=== PATIENT | male | born 1970 | race Hispanic/Latino ===

== ENCOUNTER 2017-10-18 16:09 | Emergency (ER) | payer BC ==
[2017-10-18 17:29] VITALS: BP 129/72; PULSE 80; RESP 16; TEMP 98.1; O2SAT 97
[2017-10-18] MEDS ORDERED: Tmp-Smz 800 mg-160 mg DS Tab PO STA (18:01)
[2017-10-18] MEDS ORDERED: Bacitracin OINT 15GM TOP STA (18:03)
[2017-10-18] MEDS ORDERED: Bacitracin 500 Units/gm Oint Foilpak UD ONE (18:07)
[2017-10-18] MEDS ORDERED: Tmp-Smz 800 mg-160 mg DS Tab ONE (18:07)
--- NOTE | 2017-10-18 18:29 | ED PDOC ---
Lower Extremity Pain/Injury Time Seen by Provider: 10/18/17 17:38 Chief Complaint (Nursing): Lower Extremity Problem/Injury Chief Complaint (Provider): Abscess History Per: Patient History/Exam Limitations: no limitations Onset/Duration Of Symptoms: Days (5) Current Symptoms Are (Timing): Still Present Pain Scale Rating Of: 5 Additional Complaint(s): Patient is a 46 year old male with a history of anxiety, depression, and hypothyroidism who presents for evaluation of an abscess to the posterior left calf for the past 5 days. Patient states the abscess has been draining intermittently for the past 3 days. Patient reports localized pain and swelling. Patient denies taking any medications prior to arrival in ED but has been applying Neosporin at home. Patient reports pain with movement. Otherwise: (-) fever (-) chills (-) prolonged immobility (-) SOB (-) cough (-) chest pain ( -) abdominal pain (-) nausea (-)vomiting (-) diarrhea. PMD: None - Risk Factors DVT Risk Factors: Pos: None Past Medical History Reviewed: Historical Data, Nursing Documentation Vital Signs: Last Vital Signs Temp 98.1 F 10/18/17 17:25 Pulse 80 10/18/17 17:25 Resp 16 10/18/17 17:25 BP 129/72 10/18/17 17:25 Pulse Ox 97 10/18/17 17:25 - Medical History PMH: Anxiety, Depression, Hypothyroidism - Surgical History Other surgeries: bilateral hip replacement, patella surgery of right knee - Family History Family History: States: Unknown Family Hx - Living Arrangements Living Arrangements: With Family - Social History Ex-Smoker (has not smoked in the last 12 months): No Alcohol: None Drugs: Denies - Immunization History Hx Tetanus Toxoid Vaccination: No (unknown) - Home Medications Home Medications: Ambulatory Orders Medication Instructions Recorded Cephalexin [cephalexin] 500 mg PO QID #28 cap 10/18/17 Ibuprofen [Motrin Tab] 600 mg PO TID PRN #21 tab 10/18/17 Sulfamethoxazole/Trimethoprim 1 tab PO BID #14 tab 10/18/17 [Bactrim DS 800 mg-160 mg] - Allergies Allergies/Adverse Reactions: Allergies Allergy/AdvReac Type Severity Reaction Status Date / Time morphine Allergy ANAPHYLAXIS Verified 10/18/17 17:24 shellfish derived Allergy ANAPHYLAXIS Verified 10/18/17 17:24 Wells Criteria for PE - Wells Criteria for Pulmonary Embolism Clinical Signs and Symptoms of DVT: No Total Score: 0 Physical Exam - Reviewed Nursing Documentation Reviewed: Yes Vital Signs Reviewed: Yes - Physical Exam Appears: Positive for: Well, Non-toxic, No Acute Distress Head Exam: Positive for: NORMOCEPHALIC Skin: Positive for: Normal Color, Warm, Dry Eye Exam: Positive for: Normal appearance Neck: Positive for: Supple Cardiovascular/Chest: Positive for: Regular Rate, Rhythm Respiratory: Positive for: Normal Breath Sounds Extremity: Positive for: Normal ROM, Tenderness, Swelling (to posterior left calf with [id number] area of induration and erythema with central drainage (+) warmth (-) surrounding erythema), Other (sensation intact (-) distal NV deficit) Neurologic/Psych: Positive for: Alert, Oriented, Gait (steady). Negative for: Motor/Sensory Deficits - ECG O2 Sat by Pulse Oximetry: 97 (RA) Pulse Ox Interpretation: Normal Medical Decision Making Medical Decision Making: Initial impression: Abscess Patient treated with Keflex 500mg PO, Toradol 30mg IM, and Bactrim DS 1 tab. Wound irrigated with normal saline and Bacitracin/dry dressing applied. TDaP administered IM. On re-evaluation at 1914, patient with improvement of presenting symptoms. Stable for discharge. Warm compresses encouraged at home. Educated on wound care. Patient advised to follow up with PMD/clinic in 1-2 days without fail and to return to ED with any new or worsening symptoms, including but not limited to fever, worsening pain, and/or increased swelling or redness. Disposition - Clinical Impression Clinical Impression: Abscess - Patient ED Disposition Is Patient to be Admitted: No Counseled Patient/Family Regarding: Diagnosis, Need For Followup, Rx Given - Disposition Disposition: Routine/Home Disposition Time: 19:21 Condition: STABLE Prescriptions: Cephalexin [cephalexin] 500 mg PO QID #28 cap Ibuprofen [Motrin Tab] 600 mg PO TID PRN #21 tab PRN Reason: Pain, Moderate (4-7) Sulfamethoxazole/Trimethoprim [Bactrim DS 800 mg-160 mg] 1 tab PO BID #14 tab Instructions: Cellulitis (ED), Abscess (ED), Heat Pack Application (ED) Forms: [employer] ([place]an) Print Language: SWAZI
[2017-10-18] MEDS ORDERED: Tetanus/Diphtheria Toxoids 0.5 ml Syringe IM ONE (18:34)
== END 2017-10-18 19:57 | disposition home or self-care (01) ==
LOC: H.ER 16:09
DX: L02.416 Cutaneous abscess of left lower limb (principal); E03.9 Hypothyroidism, unspecified; Z96.643 Presence of artificial hip joint, bilateral; F32.9 Major depressive disorder, single episode, unspecified
CPT/HCPCS: 90471; 90714; 96372; 99283; J1885